=== PATIENT | female | born 1975 | race Hispanic/Latino ===

== ENCOUNTER 2021-05-22 19:21 | Inpatient (IN) | payer MEDICAID, OTHER ==
[~2021-05-22] VITALS: Ht 154.9 cm; Wt 64.4 kg
[2021-05-22 19:28] VITALS: BP 114/63
[2021-05-22] MEDS ORDERED: ACETAMINOPHEN 500 MG TABLET PO ONE (20:00)
[2021-05-22 23:54] VITALS: BP 109/70
[2021-05-23] VITALS (8 sets, daily range): BP systolic 94–111; BP diastolic 52–68
[2021-05-23] MEDS ORDERED: METOCLOPRAMIDE 10 MG/2 ML VIAL IM ONE
[2021-05-23] MEDS ORDERED: ONDANSETRON 4MG INJ IVP ONE
[2021-05-23 00:11] LABS: HEMATOCRIT 22.1 % (36-48); LYMPHOCYTES % (AUTO) 48.3 % (21.0-51.0); MEAN CORPUSCULAR HEMOGLOBIN 35.8 pg (27.0-33.0); MEAN CORPUSCULAR HGB CONC 35.3 g/dL (32.0-36.0); MEAN CORPUSCULAR VOLUME 101.4 fL (79-99); MONOCYTES % (AUTO) 49.4 % (3.0-13.0); NEUTROPHILS % (AUTO) 2.3 % (40.0-77.0); NUCLEATED RED BLOOD CELLS 4.7 % (0.0-0.19); PLATELET COUNT (AUTO) 70 K/uL (130-400); RED BLOOD CELL COUNT(AUTO) 2.18 MIL/uL (4.00-5.50); RED CELL DISTRIBUTION WIDTH 14.8 % (11.0-15.5); WHITE BLOOD COUNT (AUTO) 4.3 K/uL (4.8-10.8)
[2021-05-23 00:14] LABS: PROTHROMBIN TIME 10.9 SEC (9.6-11.6)
[2021-05-23 00:17] LABS: ALANINE AMINOTRANSFERASE 24 U/L (12-78); ALBUMIN 3.5 g/dL (3.5-5.0); ASPARTATE AMINOTRANSFERASE 11 U/L (10-37); BILIRUBIN,TOTAL 1.4 mg/dL (0.2-1.0); CARBON DIOXIDE 23 mmol/L (21-32); CHLORIDE 98 mmol/L (101-111); CREATININE 0.7 mg/dL (0.5-1.5); GLOMERULAR FILTR. RATE CALC 96 mL/min (>60); POTASSIUM 3.3 mmol/L (3.5-5.1); SODIUM SERUM 135 mmol/L (136-145); TOTAL PROTEIN, SERUM 7.3 g/dL (6.0-8.3); UREA NITROGEN, BLOOD 6 mg/dL (7-18)
[2021-05-23 00:18] LABS: GLUCOSE,RANDOM 498 mg/dL (70-105); LIPASE < 50 U/L (114-286)
[2021-05-23] MEDS ORDERED: 0.9%NACL 1000ML 1,000 ML IV ONE ×2 (00:30)
[2021-05-23 00:39] LABS: APPEARANCE,URINE Clear (CLEAR); BILIRUBIN,URINE Negative (NEGATIVE); COLOR,URINE Yellow (YELLOW); GLUCOSE, URINE (UA) >=1000 mg/dL (NEGATIVE); KETONES,URINE >=80 mg/dL (NEGATIVE); LEUKOCYTE ESTERASE ,URINE Negative (NEGATIVE); NITRATE,URINE Negative (NEGATIVE); OCCULT BLOOD,URINE Small (NEGATIVE); PH,URINE 6.5 (5.0-8.0); PROTEIN,URINE Negative (NEGATIVE); UROBILINOGEN,URINE 0.2 mg/dL (0.2-1.0)
[2021-05-23 00:48] LABS: PLATELET MORPHOLOGY COMMENT DECREASED
[2021-05-23 00:51] LABS: BACTERIA,URINE None Seen /HPF (None Seen); SQUAMOUS EPITHELIAL CELL,UR Moderate /HPF (0-2); WBC,URINE 0-1 /HPF (0-1)
[2021-05-23 00:52] LABS: YEAST,URINE BUDDING Few /HPF (None Seen)
[2021-05-23 01:59] LABS: ABG OXYGEN SATURATION 28.5 % (95.0-99.0); BASE EXCESS,VENOUS BLOOD GAS 0.1 (-2.0-3.0); HCO3,VENOUS BLOOD GAS 25.2 (21.0-28.0); PCO2,VENOUS BLOOD GAS 43 (32-45); PH,VENOUS BLOOD GAS 7.391 (7.350-7.450)
[2021-05-23] MEDS ORDERED: LACTATED RINGERS 1000ML 1,000 ML IV ONE (02:00)
[2021-05-23] MEDS ORDERED: ZOSYN 3.375GM+NS 50ML 50 ML IV ONE (02:00)
[2021-05-23] MEDS ORDERED: INSULIN HUMULIN R 100 UNIT/ML 3ML SQ ONE (03:30)
[2021-05-23] MEDS ORDERED: POTASSIUM CHLORIDE 10% ELIXIR 20 MEQ/15 ML UDCUP PO PRN (04:00)
[2021-05-23] MEDS ORDERED: LIDOCAINE HCL-MPF 1% 2ML VIAL IV PRN (04:00)
[2021-05-23] MEDS ORDERED: ACETAMINOPHEN 325 MG TAB PO PRN (04:00)
[2021-05-23] MEDS ORDERED: POTASSIUM CHLORIDE 20MEQ/100ML 100 ML IV PRN (04:00)
[2021-05-23] MEDS: KCL 20 MEQ ERTAB PO PRN ×4 (04:57→18:45)
[2021-05-23] MEDS ORDERED: 0.9% NACL 250ML IVPB SCH (07:00)
[2021-05-23] MEDS ORDERED: ZOSYN 3.375GM+NS 50ML 3.38 GM in 0.9%NACL 50ML 50 ML IV SCH (07:00)
[2021-05-23] MEDS ORDERED: VANCOMYCIN 1G VIAL IVPB SCH (07:00)
[2021-05-23] MEDS: INSULIN HUMULIN R 100 UNIT/ML 3ML SQ SCH ×3 (08:20→17:43)
[2021-05-23] MEDS ORDERED: FAMOTIDINE 20MG TAB PO SCH (09:00)
[2021-05-23] MEDS ORDERED: VANCOMYCIN 1G/250ML KIT 250 ML IV SCH (09:00)
[2021-05-23 09:06] LABS: CREATININE 0.4 mg/dL (0.5-1.5)
[2021-05-23 09:12] LABS: POTASSIUM 2.9 mmol/L (3.5-5.1)
[2021-05-23] MEDS ORDERED: 0.9% NACL 250ML 250 ML ONE (09:57)
[2021-05-23] MEDS: ZOSYN 3.375GM+NS 50ML 50 ML IV SCH ×4 (10:01→19:35)
== END 2021-05-23 19:48 | disposition short-term general hospital (02) | DRG 872 ==
LOC: EDH 19:21 → OBSVTOIN 19:22 → EDHIP 19:22 → 3BH 05-23 07:51
PROVIDERS: ADMIT Internal Medicine; ATTEND Internal Medicine
DX: A41.9 Sepsis, unspecified organism (principal); D61.818 Other pancytopenia; C92.02 Acute myeloblastic leukemia, in relapse; E11.65 Type 2 diabetes mellitus with hyperglycemia; E87.6 Hypokalemia; Z20.822 Contact with and (suspected) exposure to COVID-19; Z56.0 Unemployment, unspecified; Z90.49 Acquired absence of other specified parts of digestive tract
CPT/HCPCS: 36415; 36600; 71045; 80048; 80053; 81001; 82010; 82803; 82948; 83036; 83605; 83690; 84145; 84484; 85025; 85610; 87040; 87088; 87635; 93005; C9803; G0378; J1815; J2405; J2543; J2765; J3370; J7050